=== PATIENT | female | born 1975 | race Caucasian/White ===

== ENCOUNTER 2020-12-19 19:52 | Emergency (ER) | payer SELFPAY ==
[2020-12-19 22:56] LABS: Urine Blood 2+ (Negative); Urine Glucose Negative (Negative); Urine Protein 1+ (Negative); Urine Specific Gravity >=1.030 (1.005-1.030); Urine pH 6.5 (5.0-7.0)
[2020-12-19] MEDS ORDERED: KETOROLAC 30 MG/ML INJ ONE (23:03)
[2020-12-19] MEDS ORDERED: NA CHLORIDE 0.9% 1,000 ML ONE (23:03)
[2020-12-19] MEDS ORDERED: DIPHENHYDRAMINE 50 MG/ML VIAL ONE (23:03)
[2020-12-19] MEDS ORDERED: METOCLOPRAMIDE 10 MG/2mL INJ ONE (23:03)
[2020-12-19] MEDS ORDERED: FAMOTIDINE 20 MG/2 ML VIAL IV ONE (23:15)
[2020-12-19 23:36] LABS: Absolute Lymphocytes (CBC) 1.8 K/uL (0.7-4.9); Basophils % 0.7 % (0-1.3); Hematocrit 35.3 % (36.0-45.0); Lymphocytes % 23.1 % (15.3-44.8); MPV 7.4 fL (7.6-11.3); RBC Red Blood Cell Count 3.83 M/uL (3.86-4.86)
[2020-12-20 00:06] LABS: Albumin 3.9 g/dL (3.4-5.0); Bilirubin Total 0.4 mg/dL (0.2-1.0); Potassium 3.5 mmol/L (3.5-5.1); Protein, Total 7.7 g/dL (6.4-8.2)
[2020-12-20] MEDS ORDERED: NA CHLORIDE 0.9% 1,000 ML ONE (00:19)
--- NOTE | 2020-12-20 00:33 | ER ---
Nurse's Notes [facility] Name: Sheridan Klein Age: 45 yrs Sex: Female : 1975 Arrival Date: 12/19/2020 Time: 19:54 Bed 8 Private MD: Diagnosis: Migraine;Vomiting Presentation: 12/19 20:19 Chief complaint: Patient states: Stomach started hurting 2days, vomiting 2 days, have jb4 not eaten. Migraine headaches, abdominal pain. Coronavirus screen: Client denies travel out of the [place] in the last 14 days. At this time, the client does not indicate any symptoms associated with coronavirus-19. Ebola Screen: Patient negative for fever greater than or equal to 101.5 degrees Fahrenheit, and additional compatible Ebola Virus Disease symptoms. Initial Sepsis Screen: Does the patient meet any 2 criteria? No. Patient's initial sepsis screen is negative. Does the patient have a suspected source of infection? No. Patient's initial sepsis screen is negative. Risk Assessment: Do you want to hurt yourself or someone else? Patient reports no desire to harm self or others. Onset of symptoms was December 17, 2020. Transition of care: patient was not received from another setting of care. 20:19 Method Of Arrival: Ambulatory jb4 20:19 Acuity: RUMA 3 jb4 Triage Assessment: 12/20 01:09 General: Behavior is calm. 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 - Social history:: Smoking status: Patient denies any tobacco usage or history of. Patient/guardian denies using alcohol, street drugs. Screenin:00 Abuse screen: Denies threats or abuse. Denies injuries from another. Nutritional mg2 screening: No deficits noted. Tuberculosis screening: No symptoms or risk factors identified. Fall Risk IV access (20 points). Assessment: 22:45 General: Appears in no apparent distress. comfortable. Pain: Complains of pain in head. mg2 Neuro: Level of Consciousness is awake, alert, obeys commands, Oriented to person, place, time, situation. Cardiovascular: Capillary refill < 3 seconds Patient's skin is warm and dry. Respiratory: Airway is patent Respiratory effort is even, unlabored, Respiratory pattern is regular, symmetrical. GI: Abdomen is flat, non-distended, Reports lower abdominal pain, upper abdominal pain, nausea, vomiting. : No signs and/or symptoms were reported regarding the genitourinary system. EENT: No signs and/or symptoms were reported regarding the EENT system. Derm: Skin is intact, is healthy with good turgor, Skin is pink, warm \T\ dry. normal. Musculoskeletal: Circulation, motion, and sensation intact. Capillary refill < 3 seconds. 12/20 01:08 Reassessment: Patient appears in no apparent distress at this time. Patient denies pain mg2 at this time. Patient states feeling better. Patient states symptoms have improved. Vital Signs: 12/19 20:19 BP 122 / 87; Pulse 77; Resp 18; Temp 98.4(O); Pulse Ox 99% on R/A; Weight 63.5 kg (R); jb4 Height 5 ft. 2 in. (157.48 cm) (R); Pain 8/10; 12/20 01:08 BP 120 / 80; Pulse 80; Resp 18; Temp 98; Pulse Ox 100% on R/A; mg2 12/19 20:19 Body Mass Index 25.61 (63.50 kg, 157.48 cm) jb4 [place] Coma Score: 12/19 22:43 Eye Response: spontaneous(4). Verbal Response: oriented(5). Motor Response: obeys yao commands(6). Total: 15. ED Course: 19:54 Patient arrived in ED. cl3 20:23 Triage completed. jb4 20:24 Arm band placed on right wrist. jb4 22:28 Humberto Mak MD is Attending Physician. yao 22:32 Eldon Torres RN is Primary Nurse. mg2 22:45 Inserted saline lock: 20 gauge in right antecubital area, using aseptic technique. mg2 Blood collected. 23:00 No provider procedures requiring assistance completed. mg2 23:01 Patient has correct armband on for positive identification. mg2 12/20 00:32 Ruben Steward MD is Referral Physician. yao 01:08 IV discontinued, intact, bleeding controlled, No redness/swelling at site. Pressure mg2 dressing applied. Administered Medications: 12/19 22:58 Drug: Benadryl (diphenhydrAMINE) 50 mg Route: IVP; Site: right antecubital; mg2 23:45 Follow up: Response: No adverse reaction mg2 22:58 Drug: Reglan (metoCLOPramide) 10 mg Route: IVP; Site: right antecubital; mg2 23:45 Follow up: Response: No adverse reaction mg2 22:58 Drug: Pepcid (famotidine) 20 mg Route: IVP; Site: right antecubital; mg2 23:45 Follow up: Response: No adverse reaction mg2 22:59 Drug: NS 0.9% 1000 ml Route: IV; Rate: 1 bolus; Site: right antecubital; mg2 23:45 Follow up: Response: No adverse reaction; IV Status: Completed infusion; IV Intake: mg2 1000ml 22:59 Drug: TORadol (ketorolac) 30 mg Route: IVP; Site: right antecubital; mg2 23:45 Follow up: Response: No adverse reaction mg2 12/20 00:00 Drug: NS 0.9% 1000 ml Route: IV; Rate: 1 bolus; Site: right antecubital; mg2 01:01 Follow up: Response: No adverse reaction; IV Status: Completed infusion; IV Intake: mg2 1000ml Intake: 12/19 23:45 IV: 1000ml; Total: 1000ml. mg2 12/20 01:01 IV: 1000ml; Total: 2000ml. mg2 Outcome: 00:32 Discharge ordered by . yao 01:09 Discharged to home ambulatory, with family. mg2 01:09 Condition: stable 01:09 Discharge instructions given to patient, family, Instructed on discharge instructions, follow up and referral plans. medication usage, Demonstrated understanding of instructions, follow-up care, medications, Prescriptions given X 3. 01:09 Patient left the ED. mg2 Signatures: Humberto Mak MD MD cha Bryson, James, RN RN jb4 Eldon Torres RN RN mg2 Daisy Ge cl3
--- NOTE | 2020-12-20 00:33 | EDPHYS ---
Physician Documentation [facility] Name: Sheridan Klein Age: 45 yrs Sex: Female : 1975 Arrival Date: 12/19/2020 Time: 19:54 Bed 8 Private MD: LUZ Physician Humberto Mak HPI: 12/19 22:40 This 45 yrs old Female presents to ER via Ambulatory with complaints of yao Migraine, Vomiting. 22:40 The patient presents to the emergency department with nausea, that is moderate, yao vomiting, that is continuous. Onset: The symptoms/episode began/occurred 2 day(s) ago. Possible causes: unknown. The symptoms are aggravated by movement, pressure, The symptoms are alleviated by remaining still, supine position. Associated signs and symptoms: Pertinent positives: nausea, vomiting. Severity of symptoms: At their worst the symptoms were mild moderate in the emergency department the symptoms are unchanged. The patient has experienced similar episodes in the past, several times. 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 - Social history:: Smoking status: Patient denies any tobacco usage or history of. Patient/guardian denies using alcohol, street drugs. ROS: 22:41 Constitutional: Negative for fever, chills, and weight loss, Eyes: Negative for injury, yao pain, redness, and discharge, ENT: Negative for injury, pain, and discharge, Neck: Negative for injury, pain, and swelling, Cardiovascular: Negative for chest pain, palpitations, and edema, Respiratory: Negative for shortness of breath, cough, wheezing, and pleuritic chest pain, Back: Negative for injury and pain, : Negative for injury, bleeding, discharge, and swelling, MS/Extremity: Negative for injury and deformity, Skin: Negative for injury, rash, and discoloration, Neuro: Negative for headache, weakness, numbness, tingling, and seizure, Psych: Negative for depression, anxiety, suicide ideation, homicidal ideation, and hallucinations, Allergy/Immunology: Negative for hives, rash, and allergies, Endocrine: Negative for neck swelling, polydipsia, polyuria, polyphagia, and marked weight changes, Hematologic/Lymphatic: Negative for swollen nodes, abnormal bleeding, and unusual bruising. 22:41 Abdomen/GI: Positive for nausea, vomiting. 22:41 Neuro: Positive for headache. Exam: 22:41 Constitutional: This is a well developed, well nourished patient who is awake, alert, yao and in no acute distress. Head/Face: Normocephalic, atraumatic. Eyes: Pupils equal round and reactive to light, extra-ocular motions intact. Lids and lashes normal. Conjunctiva and sclera are non-icteric and not injected. Cornea within normal limits. Periorbital areas with no swelling, redness, or edema. ENT: Nares patent. No nasal discharge, no septal abnormalities noted. Tympanic membranes are normal and external auditory canals are clear. Oropharynx with no redness, swelling, or masses, exudates, or evidence of obstruction, uvula midline. Mucous membranes moist. Neck: Trachea midline, no thyromegaly or masses palpated, and no cervical lymphadenopathy. Supple, full range of motion without nuchal rigidity, or vertebral point tenderness. No Meningismus. Chest/axilla: Normal chest wall appearance and motion. Nontender with no deformity. No lesions are appreciated. Cardiovascular: Regular rate and rhythm with a normal S1 and S2. No gallops, murmurs, or rubs. Normal PMI, no JVD. No pulse deficits. Respiratory: Lungs have equal breath sounds bilaterally, clear to auscultation and percussion. No rales, rhonchi or wheezes noted. No increased work of breathing, no retractions or nasal flaring. Abdomen/GI: Soft, non-tender, with normal bowel sounds. No distension or tympany. No guarding or rebound. No evidence of tenderness throughout. Back: No spinal tenderness. No costovertebral tenderness. Full range of motion. Skin: Warm, dry with normal turgor. Normal color with no rashes, no lesions, and no evidence of cellulitis. MS/ Extremity: Pulses equal, no cyanosis. Neurovascular intact. Full, normal range of motion. Neuro: Awake and alert, GCS 15, oriented to person, place, time, and situation. Cranial nerves II-XII grossly intact. Motor strength 5/5 in all extremities. Sensory grossly intact. Cerebellar exam normal. Normal gait. Psych: Awake, alert, with orientation to person, place and time. Behavior, mood, and affect are within normal limits. 22:41 Neuro: Orientation: is normal, appropriate for stated age, no acute changes, Mentation: is normal, appropriate for stated age, no acute changes, Memory: is normal, appropriate for stated age, no acute changes, Cranial nerves: grossly normal, is grossly normal based on the patient's age, no acute changes, Cerebellar function: is grossly normal, is grossly normal based on the patient's age, no acute changes, Motor: is normal, is grossly normal based on the patient's age, no acute changes, moves all fours, strength is 5/5 in all extremities, Sensation: appropriate no acute changes, numbness, is not appreciated, tingling, is not appreciated, Gait: is steady, at a normal pace, without difficulty, Babinski testing is normal, seizure activity, is not displayed by the patient. Vital Signs: 20:19 BP 122 / 87; Pulse 77; Resp 18; Temp 98.4(O); Pulse Ox 99% on R/A; Weight 63.5 kg (R); jb4 Height 5 ft. 2 in. (157.48 cm) (R); Pain 8/10; 12/20 01:08 BP 120 / 80; Pulse 80; Resp 18; Temp 98; Pulse Ox 100% on R/A; mg2 12/19 20:19 Body Mass Index 25.61 (63.50 kg, 157.48 cm) jb4 [place] Coma Score: 12/19 22:43 Eye Response: spontaneous(4). Verbal Response: oriented(5). Motor Response: obeys yao commands(6). Total: 15. MDM: 22:28 Patient medically screened. [facility] 22:43 Differential diagnosis: cluster headache, gastritis, hyponatremia, migraine. Data [facility] reviewed: vital signs, nurses notes, lab test result(s), CBC, electrolytes, hepatic panel. Data interpreted: manager monitoring: rate is 77 beats/min, rhythm is regular, Pulse oximetry: on room air. Counseling: I had a detailed discussion with the patient and/or guardian regarding: the historical points, exam findings, and any diagnostic results supporting the discharge/admit diagnosis, lab results, the need for outpatient follow up, for definitive care, a family practitioner, a neurologist. 12/19 22:37 Order name: CBC with Diff; Complete Time: 23:58 [facility] 12/19 22:37 Order name: Comprehensive Metabolic Panel; Complete Time: 00:31 [facility] 12/19 22:56 Order name: Urine Dipstick-Ancillary; Complete Time: 23:58 EDMS 12/19 22:37 Order name: Urine Dipstick-Ancillary (obtain specimen); Complete Time: 22:55 [facility] 12/19 22:40 Order name: Oxygen; Complete Time: 22:56 [facility] Administered Medications: 22:58 Drug: Benadryl (diphenhydrAMINE) 50 mg Route: IVP; Site: right antecubital; mg2 23:45 Follow up: Response: No adverse reaction mg2 22:58 Drug: Reglan (metoCLOPramide) 10 mg Route: IVP; Site: right antecubital; mg2 23:45 Follow up: Response: No adverse reaction mg2 22:58 Drug: Pepcid (famotidine) 20 mg Route: IVP; Site: right antecubital; mg2 23:45 Follow up: Response: No adverse reaction mg2 22:59 Drug: NS 0.9% 1000 ml Route: IV; Rate: 1 bolus; Site: right antecubital; mg2 23:45 Follow up: Response: No adverse reaction; IV Status: Completed infusion; IV Intake: mg2 1000ml 22:59 Drug: TORadol (ketorolac) 30 mg Route: IVP; Site: right antecubital; mg2 23:45 Follow up: Response: No adverse reaction [facility] 12/20 00:00 Drug: NS 0.9% 1000 ml Route: IV; Rate: 1 bolus; Site: right antecubital; mg2 01:01 Follow up: Response: No adverse reaction; IV Status: Completed infusion; IV Intake: mg2 1000ml Disposition: 12/20/20 00:32 Discharged to Home. Impression: Migraine, Vomiting. - Condition is Stable. - Discharge Instructions: Migraine Headache, Nausea and Vomiting, Adult, Nausea and Vomiting, Adult, [id number]. - Prescriptions for Fioricet with Codeine 50- 325-40-30 mg Oral capsule - take 1 capsule by ORAL route every 4 hours as needed not to exceed 6 capsules per 24hrs; 20 capsule. Pepcid 20 mg Oral Tablet - take 1 tablet by ORAL route every 12 hours for 10 days; 20 tablet. Zofran 4 mg Oral Tablet - take 1 tablet by ORAL route every 12 hours As needed; 20 tablet. - Medication Reconciliation Form, Thank You Letter, Antibiotic Education, Prescription Opioid Use, Work release form form. - Follow up: Private Physician; When: 2 - 3 days; Reason: Recheck today's complaints, Continuance of care, Re-evaluation by your physician. Follow up: Ruben Steward; When: 2 - 3 days; Reason: Recheck today's complaints, Re-evaluation by your physician. - Problem is new. - Symptoms have improved. Signatures: Dispatcher [employer] EDMS Humberto Mak MD MD cha Bryson, James, RN RN jb4 Eldon Torres RN RN mg2 Corrections: (The following items were deleted from the chart) 01:09 00:32 12/20/2020 00:32 Discharged to Home. Impression: Migraine; Vomiting. Condition is mg2 Stable. Discharge Instructions: Migraine Headache, Nausea and Vomiting, Adult, Nausea and Vomiting, Adult, [id number]. Prescriptions for Fioricet with Codeine [id number] mg Oral capsule - take 1 capsule by ORAL route every 4 hours as needed not to exceed 6 capsules per 24hrs; 20 capsule, Pepcid 20 mg Oral Tablet - take 1 tablet by ORAL route every 12 hours for 10 days; 20 tablet, Zofran 4 mg Oral Tablet - take 1 tablet by ORAL route every 12 hours As needed; 20 tablet. and Forms are Medication Reconciliation Form, Thank You Letter, Antibiotic Education, Prescription Opioid Use. Follow up: Private Physician; When: 2 - 3 days; Reason: Recheck today's complaints, Continuance of care, Re-evaluation by your physician. Follow up: Ruben Steward; When: 2 - 3 days; Reason: Recheck today's complaints, Re-evaluation by your physician. Problem is new. Symptoms have improved. yao
[2020-12-20 01:16] VITALS: BP 120/80; TEMP 98; O2SAT 100
== END 2020-12-20 01:09 | disposition home or self-care (01) ==
LOC: ER 19:52
DX: G43.909 Migraine, unspecified, not intractable, without status migrainosus (principal); E03.9 Hypothyroidism, unspecified; Z88.0 Allergy status to penicillin; Z98.82 Breast implant status
CPT/HCPCS: 36415; 80053; 81003; 85025; 96361; 96374; 96375; 99284; J1200; J2765; J7030; J7040

== ENCOUNTER 2021-03-18 10:13 | Emergency (ER) | payer SELFPAY ==
--- NOTE | 2021-03-18 11:49 | RAD REPORT ---
EXAM DESCRIPTION: RAD - Shoulder Right 2 View - 03/18/2021 11:40 am CLINICAL HISTORY: PAIN COMPARISON: No comparisons FINDINGS: No right shoulder fracture or dislocation. The right lung is clear. No radiopaque foreign bodies. IMPRESSION: No right shoulder fracture or dislocation.
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
[2021-03-18] MEDS ORDERED: HYDROCODONE/APAP 5/325 MG TAB ONE (11:58)
[2021-03-18 12:22] VITALS: BP 119/90; TEMP 98.7; O2SAT 98
== END 2021-03-18 12:16 | disposition home or self-care (01) ==
LOC: ER 10:13
DX: S46.911A Strain of unspecified muscle, fascia and tendon at shoulder and upper arm level, right arm, initial encounter (principal); Y04.2XXA Assault by strike against or bumped into by another person, initial encounter; Y92.009 Unspecified place in unspecified non-institutional (private) residence as the place of occurrence of the external cause; Z88.0 Allergy status to penicillin; Z91.013 Allergy to seafood
CPT/HCPCS: 99284

== ENCOUNTER 2021-07-10 19:38 | Emergency (ER) | payer SELFPAY ==
[2021-07-10 20:14] LABS: Urine Blood 1+ (Negative); Urine Glucose Negative (Negative); Urine Protein Negative (Negative); Urine Specific Gravity 1.015 (1.005-1.030); Urine pH 8.5 (5.0-7.0)
[2021-07-10] MEDS ORDERED: CIPROFLOXACIN 400mg IV 0 MG/0 ML BAG IV ONE (20:22)
[2021-07-10] MEDS ORDERED: NA CHLORIDE 0.9% 1,000 ML ONE ×2 (20:22→21:52)
[2021-07-10 20:32] LABS: Urine Bacteria LOADED /HPF (<20); Urine RBC <5 /HPF (NONE SEEN)
--- NOTE | 2021-07-10 20:32 | RAD REPORT ---
EXAM DESCRIPTION: CT - Stone Protocol - 07/10/2021 8:24 pm CLINICAL HISTORY: Flank pain. right flank pain COMPARISON: No comparisons TECHNIQUE: Axial images were obtained without oral or IV contrast. Lack of contrast limits solid org an and vascular assessment. The [id number] spans the entirety of the system partially obscuring uppermost abdomen and lung bases. Coronal reformatted images were obtained and reviewed. All CT scans are performed using dose optimization technique as appropriate and may include automated exposure control or mA/KV adjustment according to patient size. FINDINGS: The lower lung kruse are clear. Imaged portions of the liver and spleen show no suspicious findings on non-contrast imaging. The panc reas and adrenal glands are normal. No pathologic lymphadenopathy in the abdomen or pelvis. No urinary tract stones or obstructive uropathy. Mild perinephric inflammation suspected about the ri ght kidney. No bowel obstruction, free air, free fluid or abscess. Normal appendix noted. No significant bony abnormality. IMPRESSION: No urinary tract stones or obstructive uropathy. Mild fat stranding surrounding the right kidney could indicate pyelonephritis
[2021-07-10 20:54] LABS: Absolute Lymphocytes (CBC) 1.2 K/uL (0.7-4.9); Basophils % 0.3 % (0-1.3); Hematocrit 33.7 % (36.0-45.0); MPV 7.3 fL (7.6-11.3); RBC Red Blood Cell Count 3.79 M/uL (3.86-4.86)
[2021-07-10 21:07] LABS: ALT/SGPT 17 U/L (12-78); AST/SGOT 10 U/L (15-37); Albumin 3.6 g/dL (3.4-5.0); Alkaline Phosphatase 73 U/L (45-117); BUN Blood Urea Nitrogen 9 mg/dL (7-18); Bicarbonate 27 mmol/L (21-32); Bilirubin Direct < 0.1 mg/dL (0-0.2); Bilirubin Total 0.4 mg/dL (0.2-1.0); Glucose Level 130 mg/dL (74-106); Potassium 3.8 mmol/L (3.5-5.1); Protein, Total 7.4 g/dL (6.4-8.2); Sodium Level 140 mmol/L (136-145)
[2021-07-10] MEDS ORDERED: KETOROLAC 30 MG/ML INJ ONE (21:51)
[2021-07-10] MEDS ORDERED: CIPROFLOXACIN 400mg IV 400 MG/200 ML BAG IV ONE (21:52)
[2021-07-10] MEDS ORDERED: ACETAMINOPHEN 500 MG TAB ONE (22:11)
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
--- NOTE | 2021-07-10 23:06 | EDPHYS ---
Physician Documentation [facility] Name: Sheridan Klein Age: 45 yrs Sex: Female : 1975 Arrival Date: 07/10/2021 Time: 19:42 Bed 20 Private MD: ED Physician Chato Shin HPI: 07/10 20:05 This 45 yrs old Female presents to ER via Ambulatory with complaints of rn Abdominal Pain. 20:05 The patient presents with urinary symptoms, dysuria, frequency, urgency. Onset: The rn symptoms/episode began/occurred 3 week(s) ago. Modifying factors: The symptoms are alleviated by nothing, the symptoms are aggravated by urinating. Associated signs and symptoms: Pertinent positives: cramping, Chills and abdominal pain. Severity of symptoms: At their worst the symptoms were moderate, in the emergency department the symptoms are unchanged. The patient has experienced a previous episode. The patient has not recently seen a physician. 3 weeks of not feeling well, suprapubic cramping with radiation to right flank, chills and shaking, as well as increased urination and urgency. No hematuria. No known history of kidney stones. No known fever. Denies any trauma. States finally got tired of it after 3 weeks and came in tonight for evaluation. Similar episode in the past and was kidney infection.. [employer] OPERATIONS: 19:55 LMP 06/2021 [facility] Historical: - Allergies: 19:53 Fish Containing Products; [facility] 19:53 PENICILLINS; 5 - Home Meds: 19:53 levothyroxine oral [Active]; Topamax Oral [Active]; 5 - PMHx: 19:53 Hypothyroidism; Migraines; 5 - PSHx: 19:53 tubal ligation; 5 - Immunization history:: Adult Immunizations up to date. - Social history:: Smoking status: Patient denies any tobacco usage or history of. - Family history:: not pertinent. - Hospitalizations: : No recent hospitalization is reported. ROS: 20:05 Constitutional: Positive for chills Eyes: Negative for injury, pain, redness, and furniture cleaner, ENT: Negative for injury, pain, and discharge, Neck: Negative for injury, pain, and swelling, Cardiovascular: Negative for chest pain, palpitations, and edema, Respiratory: Negative for shortness of breath, cough, wheezing, and pleuritic chest pain, Abdomen/GI: Lower abdominal pain and right flank pain. Negative for vomiting or diarrhea Back: Positive for right flank pain : Positive for urgency/frequency MS/Extremity: Negative for injury and deformity, Skin: Negative for injury, rash, and discoloration, Neuro: Negative for headache, numbness, tingling, and seizure. Exam: 20:05 Constitutional: This is a well developed, well nourished patient who is awake, alert, rn and in no acute distress. Head/Face: Normocephalic, atraumatic. Eyes: Periorbital areas with no swelling, redness, or edema. ENT: Mucous membranes moist. Cardiovascular: Tachycardic, regular Respiratory: No increased work of breathing, no retractions or nasal flaring. Abdomen/GI: Soft, mild suprapubic tenderness without rebound or peritoneal signs Back: No spinal tenderness. No costovertebral tenderness. Full range of motion. Skin: Warm, dry MS/ Extremity: Pulses equal, no cyanosis. Neuro: Awake and alert, GCS 15. Normal gait. 21:53 ECG was reviewed by the Attending Physician. rn Vital Signs: 19:45 BP 155 / 108; Pulse 140; Resp 18; Temp 98; Pulse Ox 99% ; jh5 19:55 BP 135 / 98; jh5 21:42 BP 114 / 85; Pulse 116; Resp 20; Temp 100.4(O); Pulse Ox 99% on R/A; cc4 22:30 BP 109 / 79; Pulse 106; Resp 18; Pulse Ox 98% on R/A; cc4 22:45 BP 119 / 78; Pulse 102; Resp 18; Temp 99.2; Pulse Ox 98% ; cc4 23:25 BP 112 / 70; Pulse 97; Resp 20; Temp 99.2; Pulse Ox 98% ; cc4 MDM: 20:03 Patient medically screened. rn 20:05 ED course: Patient also complained of brownish spots to body and face, present for over rn a year, nontender but getting larger. States frequently send hands at the beach on her days off. No signs of cellulitis. Likely related to sun tanning. Recommend sunscreen and PCP/dermatology follow-up. 23:02 Differential diagnosis: kidney stone, urinary tract infection, pyelonephritis. Data rn reviewed: vital signs, nurses notes, lab test result(s), EKG, radiologic studies, CT scan, and as a result, I will discharge patient. Data interpreted: monitor car operator: rate is 98 beats/min, rhythm is normal sinus rhythm, regular, with no ectopy, Interpretation: normal rate, normal rhythm, Pulse oximetry: on room air is 98 %. Interpretation: normal. Counseling: I had a detailed discussion with the patient and/or guardian regarding: the historical points, exam findings, and any diagnostic results supporting the discharge/admit diagnosis, lab results, radiology results, the need for outpatient follow up, to return to the emergency department if symptoms worsen or persist or if there are any questions or concerns that arise at home. Response to treatment: the patient's symptoms have markedly improved after treatment, and as a result, I will discharge patient. Special discussion: I discussed with the patient/guardian in detail that at this point there is no indication for admission to the hospital. It is understood, however, that if the symptoms persist or worsen the patient needs to return immediately for re-evaluation. ED course: Patient improved, vital signs improved with Tylenol and heart rate continues to decrease in proportion to temperature. Will DC home with antibiotics for urinary tract infection/early uncomplicated pyelonephritis. Return precautions given and understood.. 07/10 20:04 Order name: Basic Metabolic Panel; Complete Time: 21:35 rn 07/10 20:04 Order name: CBC with Diff; Complete Time: 21:35 rn 07/10 20:04 Order name: Hepatic Function; Complete Time: 21:35 rn 07/10 20:04 Order name: Urine Culture rn 07/10 20:04 Order name: Urine Microscopic Only; Complete Time: 20:35 rn 07/10 20:04 Order name: Procalcitonin; Complete Time: 21:35 rn 07/10 20:04 Order name: CT Stone Protocol; Complete Time: 20:35 rn 07/10 20:04 Order name: Blood Culture Adult (2) rn 07/10 20:14 Order name: Urine Dipstick-Ancillary; Complete Time: 20:21 EDWV 07/10 20:04 Order name: IV Saline Lock; Complete Time: 20:43 rn 07/10 20:04 Order name: Labs collected and sent; Complete Time: 20:43 rn 07/10 20:04 Order name: Urine Dipstick-Ancillary (obtain specimen); Complete Time: 20:21 rn 07/10 20:04 Order name: Urine Test (obtain specimen); Complete Time: 20:21 rn 07/10 20:18 Order name: EKG; Complete Time: 20:18 rn 07/10 20:18 Order name: EKG - Nurse/Tech; Complete Time: 21:49 rn 07/10 20:18 Order name: Cardiac monitoring; Complete Time: 21:48 rn EC:53 Rate is 110 beats/min. Rhythm is regular. QRS Hawi is Normal. NE interval is normal. rn QRS interval is normal. QT interval is normal. No Q waves. T waves are Normal. No ST changes noted. Clinical impression: Sinus tachycardia. Interpreted by me. Reviewed by me. Administered Medications: 20:42 Drug: Cipro (ciprofloxacin) 400 mg Volume: 200 ml; Route: IVPB; Infused Over: 60 mins; 5 Site: left antecubital; 23:25 Follow up: Response: No adverse reaction cc4 23:36 Follow up: IV Status: Completed infusion; IV Intake: 200ml cc4 20:43 Drug: NS 0.9% 1000 ml Route: IV; Rate: 1000 ml; Site: left antecubital; 5 23:25 Follow up: IV Status: Completed infusion; IV Intake: 1000ml cc4 21:55 Drug: Ketorolac 30 mg Route: IVP; Site: left antecubital; cc4 23:25 Follow up: Response: No adverse reaction; Pain is decreased cc4 21:55 Drug: NS 0.9% 1000 ml Route: IV; Rate: 1000 ml; Site: left antecubital; cc4 23:25 Follow up: IV Status: Order to discontinue infusion; IV Intake: 600ml cc4 23:25 Follow up: IV Status: Order to discontinue infusion; IV Intake: 600ml cc4 22:12 Drug: Tylenol 1000 mg Route: PO; cc4 23:25 Follow up: Urine output 600 ml; Response: No adverse reaction; Temperature is decreased cc4 Disposition Summary: 07/10/21 23:05 Discharge Ordered Location: Home rn Problem: new rn Symptoms: have improved rn Condition: Stable rn Diagnosis - Pyelonephritis acute rn - Fever, unspecified rn Followup: rn - With: Private Physician - When: 2 - 3 days - Reason: Recheck today's complaints, Re-evaluation by your physician Discharge Instructions: - Discharge Summary Sheet rn - Fever, Adult rn - Pyelonephritis, Adult rn - Urinary Tract Infection, Adult rn Forms: - Medication Reconciliation Form rn - Thank You Letter rn - Antibiotic varnish mixer - Prescription Opioid Use rn - Work release form cc4 Prescriptions: - Pyridium 200 mg Oral Tablet - take 1 tablet by ORAL route every 8 hours for 3 days; 9 tablet; Refills: 0, rn Product Selection Permitted - Cipro 500 mg Oral Tablet - take 1 tablet by ORAL route every 12 hours for 14 days; 28 tablet; Refills: 0, rn Product Selection Permitted Signatures: Dispatcher [employer] EDChato Garcia MD MD rn Oracio Hansen, LUNCH[employer]OM FOOD SERVICE SUPERVISOR-C LUNCHROOM FOOD SERVICE SUPERVISOR-[facility] Leeanne Anguiano RN RN cc4 Joanie Culp RN RN jh5 Corrections: (The following items were deleted from the chart) 20:09 20:05 This 45 yrs old Female presents to ER via Ambulatory with complaints of rn Abdominal Pain, Rash. rn
[2021-07-10 23:52] VITALS: O2SAT 98
[2021-07-10 23:53] VITALS: BP 119/78; TEMP 99.2
--- NOTE | 2021-07-12 11:24 | EKG ---
Test Date: 2021-07-10 Test Time: 21:52:04 Psychological Tests Sales Agent: ERIK MEASUREMENT RESULTS: Intervals: Rate: 110 ID: [id number] QRSD: 76 QT: 334 QTc: 452 [place]: P: 36 ID: [id number] QRS: 51 T: 14 INTERPRETIVE STATEMENTS: Sinus tachycardia Nonspecific T wave abnormality Abnormal ECG No previous ECG available for comparison Electronically Signed On 07-12-21 11:20:43 HAULING CONTRACTOR by Reddy Thayer
== END 2021-07-10 23:25 | disposition home or self-care (01) ==
LOC: ER 19:38
DX: N10 Acute pyelonephritis (principal); E03.9 Hypothyroidism, unspecified; Z88.0 Allergy status to penicillin; Z91.013 Allergy to seafood
CPT/HCPCS: 36415; 74176; 76377; 80048; 80076; 81003; 81015; 84145; 85025; 87040; 87077; 87086; 87088; 87186; 93005; 96365; 96366; 96375; 99284; J0744; J7030